=== PATIENT | female | born 1995 | race African-American/Black ===

== ENCOUNTER 2019-06-09 10:41 | Inpatient (IN) ==
[2019-06-09] MEDS ORDERED: PEPCID PO ONE (10:51)
[2019-06-09] MEDS ORDERED: PEPCID IV PRN (10:51)
[2019-06-09] MEDS ORDERED: LR 500 ML IV ONE (10:51)
[2019-06-09] MEDS ORDERED: KEFZOL 1 GM/D5W 1 GM/50 ML IVPB IV PRN (10:51)
[2019-06-09] MEDS ORDERED: STADOL IV PRN (10:51)
[2019-06-09] MEDS ORDERED: REGLAN PO ONE (10:51)
[2019-06-09] MEDS ORDERED: TYLENOL PO PRN (10:51)
[2019-06-09] MEDS ORDERED: ZOFRAN IV PRN (10:51)
[2019-06-09] MEDS ORDERED: PEPCID PO PRN (10:51)
[2019-06-09] MEDS ORDERED: SODIUM CHLORIDE 0.9% INJ SCH (11:00)
[2019-06-09] MEDS ORDERED: PITOCIN 30 UNITS/NS 30 UNIT/500 ML IV.SOLN IV SCH ×2 (11:00→19:15)
[2019-06-09] MEDS ORDERED: MINERAL OIL PO ONE (11:31)
[2019-06-09 11:34] LABS: UR AMPHETAMINES QUAL NONE DETECTED (NONE DETECT); UR BARBITUATES QUAL NONE DETECTED (NONE DETECT); UR BENZODIAZEPIN QUAL NONE DETECTED (NONE DETECT); UR CANNABINOIDS QUAL NONE DETECTED (NONE DETECT); UR COCAINE QUAL NONE DETECTED (NONE DETECT); UR METHADONE QUAL NONE DETECTED (NONE DETECT); UR OPIATES QUAL NONE DETECTED (NONE DETECT); UR OXYCODONE QUAL NONE DETECTED (NONE DETECT); UR PCP QUAL NONE DETECTED (NONE DETECT)
[2019-06-09 11:40] LABS: BASO# 0.02 X1000 (0.0-0.2); BASO% 0.2 % (0.0-0.8); EOS# 0.23 X1000 (0.0-0.7); EOS% 2.4 % (0.0-10.0); HEMATOCRIT 26.6 % (37.0-47.0); HEMOGLOBIN 9.1 g/dL (12.0-16.0); IMM GRAN# 0.02 X1000 (0.0-0.04); IMM GRAN% 0.2 % (0.0-0.5); LYMPH# 1.97 X1000 (1.2-3.4); LYMPH% 20.7 % (20.5-51.1); MCH 25.7 PG (27-31); MCHC 34.2 g/dL (33-37); MCV 75.1 FL (81-99); MONO# 0.67 X1000 (0.11-0.59); MPV 9.8 FL (7.4-10.4); NEUT% 69.5 % (42.2-75.2); PLT 296 X1000 (130-400); RBC 3.54 XMIL (4.2-5.4); RDW 13.4 % (11.5-14.5); WBC 9.51 X1000 (4.8-10.8)
[2019-06-09] MEDS ORDERED: XYLOCAINE-MPF 1% INJ PRN ×2 (12:14→19:10)
[2019-06-09] MEDS ORDERED: MARCAINE 0.25% PF INJ ONE (12:15)
[2019-06-09] MEDS ORDERED: NAROPIN 0.2% INJ ONE (12:15)
[2019-06-09] MEDS ORDERED: FENTANYL-BUPIV-NS 500 MCG-0.125% 250 ML EPIDURAL SCH (13:00)
[2019-06-09] MEDS: LR 1,000 ML IV SCH ×2 (13:05→20:56)
[2019-06-09 13:30] LABS: AGAP 17; ALB/GLOB RATIO 1.4; ALBUMIN 3.5 g/dL (3.5-5.0); ALKALINE PHOSPHATASE 115 U/L (32-104); BUN 4 mg/dL (8-22); CALCIUM 8.8 mg/dL (8.8-10.2); CHLORIDE 105 mmol/L (98-107); COSMO 276; CREATININE 0.7 mg/dL (0.5-0.9); ESTIMATED GFR > 60; GLUCOSE 66 mg/dL (70-104); GOT 22 U/L (10-30); GPT 9 U/L (10-36); POTASSIUM 4.4 mmol/L (3.5-5.1); SODIUM 141 mmol/L (136-145); TCO2 19 mmol/L (25-35)
[2019-06-09 14:49] LABS: PROTEIN CREAT RATIO 0.2; UR CREAT RANDOM 48.6 mg/dL (11-20); UR PROT RANDOM 7.7 mg/dL
--- NOTE | 2019-06-09 16:35 | HISTORY AND PHYSICAL ---
HISTORY OF PRESENT ILLNESS: The patient is a 23-year-old, G 1, P 0, who presented to her routine outpatient OB appointment today with elevated blood pressures. Blood pressure was noted at 140s/90s in the office. The patient admitted to occasional headaches, but denied scotomata, right upper quadrant pain, epigastric pain, shortness of breath. The patient admits to good movements, and also admits to some irregular contractions, but denies leakage of fluid or vaginal bleeding. The patient sent from office to Labor and Delivery for induction of labor secondary to gestational hypertension at 38 weeks and 3 days. CURRENT MEDICATIONS: vitamins, ferrous sulfate. PAST MEDICAL HISTORY: Sickle cell trait, anemia. PAST SURGICAL HISTORY: None. FAMILY HISTORY: Noncontributory. SOCIAL HISTORY: Denies alcohol, tobacco, or drug use. 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 Menarche at age 13. Pap negative for intraepithelial lesions or malignancy. OBSTETRICAL HISTORY: G 1, P 0. No reported complications with current . The patient transferred care from [facility]. ALLERGIES: No known drug allergies. PHYSICAL EXAMINATION: VITAL SIGNS: Temperature is 98.3 degrees, pulse rate 96, respiration rate 18, blood pressure 135/80, O2 saturation is 100% on room air. Weight 171 pounds, height 5 feet 7 inches, body mass index 26.8 kg/m2. GENERAL: On physical examination, in general no acute distress. Alert, awake, and oriented x3. RESPIRATORY: Clear to auscultation bilaterally. Negative rhonchi, rales, or wheezing. CARDIOVASCULAR: Regular rate and rhythm. Positive S1, S2. ABDOMEN: Gravid, soft, nontender to palpation. EXTREMITIES: No calf tenderness. Negative edema. PELVIC EXAM: Sterile vaginal exam 3 cm dilated, 70% effaced, and -3 station. External monitoring category 1 tracing. LABORATORY: WBCs 9.51, hemoglobin 9.1, hematocrit 26.6, platelets 296. Urine tox negative. RPR nonreactive. ASSESSMENT: Ms. Bronson is a 23-year-old, 1, para 0 at 38 weeks and 3 days, who presents to Labor and Delivery for induction of labor secondary to gestational hypertension. PLAN: 1. Admit to Labor and Delivery for Pitocin induction. 2. Obtain routine labor labs. 3. Obtained [facility] preeclampsia labs. 4. Reviewed risks, benefits, and alternatives to induction of labor. The risks not limited to infection, bleeding, vaginal laceration and emergency section. The patient understands risks and agrees to procedure. Estimated weight 7 pounds. 5. Anticipate vaginal delivery.
[2019-06-09] MEDS ORDERED: CYTOTEC VAG ONE (18:34)
[2019-06-09] MEDS: CYTOTEC PO ONE (18:36)
[2019-06-09] MEDS ORDERED: PITOCIN 20 UNITS/NS 20 UNITS/1,000 ML IV.SOLN ONE (19:01)
[2019-06-09] MEDS ORDERED: AMBIEN PO PRN (19:10)
[2019-06-09] MEDS ORDERED: MINERAL OIL PO PRN (19:10)
[2019-06-09] MEDS ORDERED: BENADRYL IV PRN (19:10)
[2019-06-09] MEDS ORDERED: PITOCIN IM PRN (19:10)
[2019-06-09] MEDS ORDERED: CYTOTEC PO PRN (19:10)
[2019-06-09] MEDS ORDERED: BOOSTRIX VACCINE IM ONE (19:10)
[2019-06-09] MEDS ORDERED: ATARAX PO PRN (19:10)
[2019-06-09] MEDS ORDERED: M-M-R II VACCINE SUBQ ONE (19:10)
[2019-06-09] MEDS ORDERED: PERI MEDS (DERMOPLAST/NUPERCAINAL/TUCKS) MISC PRN (19:10)
[2019-06-09] MEDS ORDERED: HYDROXYZINE IM PRN (19:10)
[2019-06-09] MEDS ORDERED: PITOCIN 20 UNITS/NS 20 UNITS/1,000 ML IV.SOLN IV SCH (19:15)
[2019-06-09] MEDS: BENADRYL PO PRN (20:04)
--- NOTE | 2019-06-09 20:55 | OPERATIVE NOTE ---
PROCEDURE DATE: 06/09/2019 PROCEDURE PERFORMED: Spontaneous vaginal delivery. SURGEON: Dr. Mario Alberto Berrios. PRODUCT DEVELOPMENT ECOLOGIST: None. DESCRIPTION OF PROCEDURE: This patient delivered a viable male at 38 weeks and 3 days, weighing 7 pounds 8 ounces, with Apgars of 9 and 9 at one and five minutes respectively. The vertex was delivered spontaneously over intact perineum. No nuchal cord was identified. The anterior shoulder was delivered atraumatically by maternal expulsive efforts with the assistance of downward traction. The posterior shoulder delivered with maternal expulsive efforts and upward traction. The remainder of the fetus delivered spontaneously. The infant was placed on the patient's abdomen and assessed by awaiting fur buyer staff. The cord was clamped and cut. Cord blood was obtained for blood gas analysis. To enhance uterine contractions, IV oxytocin was administered. The cervix, vagina, and perineum were inspected for lacerations. A first-degree laceration was noted along the right vaginal sidewall, and minimal bleeding was noted. Laceration was repaired using 3-0 Vicryl on an SH needle in a running nonlocked fashion. Good hemostasis was obtained. Uterine atony was noted despite IV oxytocin and fundal massage. The patient was given 800 mcg of Cytotec per rectum to assist with uterine contraction. ESTIMATED BLOOD LOSS: 250 mL.
[2019-06-09] MEDS: PERCOCET-5 PO PRN (22:06)
[2019-06-09] MEDS: MOTRIN PO PRN (22:06)
[2019-06-09] MEDS: PERICOLACE PO SCH (22:06)
[2019-06-10 04:54] LABS: HEMATOCRIT 23.4 % (37.0-47.0); HEMOGLOBIN 7.9 g/dL (12.0-16.0); MCH 25.4 PG (27-31); MCHC 33.8 g/dL (33-37); MCV 75.2 FL (81-99); MPV 9.6 FL (7.4-10.4); RBC 3.11 XMIL (4.2-5.4); RDW 13.4 % (11.5-14.5); WBC 14.55 X1000 (4.8-10.8)
[2019-06-10] MEDS: PERCOCET-5 PO PRN ×4 (07:21→21:00)
[2019-06-10] MEDS: MOTRIN PO PRN ×2 (07:22→17:03)
[2019-06-10] MEDS: FERROUS SULFATE PO SCH ×2 (09:31→20:51)
[2019-06-10] MEDS: BENADRYL PO PRN (09:31)
[2019-06-10] MEDS: PERICOLACE PO SCH (20:51)
[2019-06-11] MEDS: MOTRIN PO PRN ×2 (00:49→09:25)
[2019-06-11 08:59] VITALS: BP 134/83
[2019-06-11] MEDS: FERROUS SULFATE PO SCH (09:21)
[2019-06-11] MEDS: PERCOCET-5 PO PRN ×2 (09:24→12:30)
--- NOTE | 2019-06-11 11:06 | DISCHARGE SUMMARY ---
ADMISSION DATE: 06/09/2019 DISCHARGE DATE: 06/11/2019 The patient was admitted for labor and delivered a normal spontaneous vaginal delivery. Her course has been uneventful. PHYSICAL EXAMINATION: Vital signs: Today, her vital signs, her blood pressure is 134/83, pulse of 90, respirations of 18, temperature of 96.3 on room air. Lungs were clear. Normal breathing and respirations. Regular rate and rhythm cardiac-santos. Abdomen was soft. Extremities: Negative. The patient is now day number 2 after a spontaneous normal vaginal delivery. She is stable for discharge. She will follow up with Dr. Berrios in the clinic in 4 weeks to discuss contraceptive care. cc: Emily Greene MD
== END 2019-06-11 14:32 | disposition home or self-care (01) | DRG 807 ==
LOC: LD 10:41
PROVIDERS: ADMIT Obstetrics & Gynecology; ATTEND Obstetrics & Gynecology